=== PATIENT | male | born 1970 | race Caucasian/White ===

== ENCOUNTER 2021-11-26 12:26 | Inpatient (IN) | payer OTHER ==
[2021-11-26] MEDS ORDERED: MENTHOL/PHENOL 1 EACH UD MM PRN (13:01)
[2021-11-26] MEDS ORDERED: NICOTINE 10 MG CARTRIDGE (INHALER) IH PRN (13:01)
[2021-11-26] MEDS ORDERED: MAGNESIUM CITRATE 300 ML BOTTLE PO PRN (13:01)
[2021-11-26] MEDS ORDERED: ONDANSETRON *ODT* 4 MG TABLET SL PRN (13:01)
[2021-11-26] MEDS ORDERED: MAGNESIUM HYDROX 2400MG/30ML ORAL SUSPENSION 30 ML CUP PO PRN (13:01)
[2021-11-26] MEDS ORDERED: BISMUTH SUBSALICYLATE 524 MG/30 ML PO PRN (13:01)
[2021-11-26] MEDS ORDERED: ACETAMINOPHEN 325 MG TABLET (FP) PO PRN ×2 (13:01)
[2021-11-26 13:14] VITALS: BMI 29.8
[2021-11-26] MEDS: PRENATAL VITAMINS W/ FOLIC ACID TABLET (FP) PO SCH (18:49)
[2021-11-26] MEDS: hydrOXYzine PAMOATE 25 MG CAPSULE (FP) PO SCH ×2 (22:33→22:36)
[2021-11-26] MEDS: THIAMINE HCL 100 MG TABLET (FP) PO SCH (22:33)
[2021-11-26] MEDS: MELATONIN 5 MG TABLETS PO SCH (22:33)
[2021-11-26] MEDS: NICOTINE 21 MG/24 HOURS TOPICAL PATCH TD SCH ×2 (22:36→22:42)
[2021-11-27] MEDS: METHOCARBAMOL 500 MG TABLET PO PRN ×2 (05:52→22:52)
[2021-11-27] MEDS: hydrOXYzine PAMOATE 25 MG CAPSULE (FP) PO SCH (05:52)
[2021-11-27] MEDS ORDERED: methaDONE HCL 10 MG TABLET PO SCH (10:00)
[2021-11-27] MEDS ORDERED: chlordiazePOXIDE HCL 25 MG CAPSULE PO PRN (10:01)
[2021-11-27] MEDS ORDERED: methaDONE HCL 40 MG DISPERSABLE TABLET ONE (10:49)
[2021-11-27] MEDS ORDERED: methaDONE HCL 10 MG TABLET ONE (10:49)
[2021-11-27] MEDS: PRENATAL VITAMINS W/ FOLIC ACID TABLET (FP) PO SCH (10:51)
[2021-11-27] MEDS: NICOTINE 21 MG/24 HOURS TOPICAL PATCH TD SCH (10:52)
[2021-11-27] MEDS: chlordiazePOXIDE HCL 25 MG CAPSULE PO SCH ×3 (12:19→22:50)
[2021-11-27] MEDS: IBUPROFEN 400 MG TABLET (FP) PO PRN (18:36)
[2021-11-27] MEDS: THIAMINE HCL 100 MG TABLET (FP) PO SCH (22:49)
[2021-11-27] MEDS: MELATONIN 5 MG TABLETS PO SCH (22:50)
[2021-11-28] MEDS ORDERED: methaDONE HCL 10 MG TABLET ONE (04:17)
[2021-11-28] MEDS ORDERED: methaDONE HCL 40 MG DISPERSABLE TABLET ONE (04:18)
[2021-11-28] MEDS: chlordiazePOXIDE HCL 25 MG CAPSULE PO SCH ×4 (05:25→22:25)
[2021-11-28] MEDS: METHOCARBAMOL 500 MG TABLET PO PRN (05:27)
[2021-11-28] MEDS: IBUPROFEN 400 MG TABLET (FP) PO PRN (06:47)
[2021-11-28] MEDS: LIDOCAINE 5% TOPICAL PATCH TP SCH (10:15)
[2021-11-28] MEDS: NICOTINE 21 MG/24 HOURS TOPICAL PATCH TD SCH (10:16)
[2021-11-28] MEDS: PRENATAL VITAMINS W/ FOLIC ACID TABLET (FP) PO SCH (10:16)
[2021-11-28 11:21] LABS: CALCIUM 8.9 mg/dL (8.5-10.1)
[2021-11-28 11:22] LABS: ALBUMIN 3.3 g/dl (3.4-5.0); BLOOD UREA NITROGEN 18.7 mg/dL (7-18)
[2021-11-28 11:25] LABS: BASO % 0.5 % (0-2.0); CREATININE 0.9 mg/dL (0.55-1.3); EOS % 2.6 % (0-4.5); HEMATOCRIT 39.6 % (35.4-49); MCHC 32.9 g/dl (32.0-35.9); MEAN CELL VOLUME 85.2 fl (80-96); MEAN PLT VOLUME 10.8 fl (7.5-11.1); MONO % 5.7 % (3.8-10.2); NEUT % 82.2 % (42.8-82.8); PLATELET COUNT 225 10^3/uL (134-434); RBC 4.65 M/mm3 (4.00-5.60); RDW 13.5 % (11.9-15.9); WHITE BLOOD COUNT 8.6 K/mm3 (4.0-10.0)
[2021-11-28 11:26] LABS: TOT PROT 6.6 g/dl (6.4-8.2)
[2021-11-28 11:27] LABS: BILIRUBIN,TOTAL 0.4 mg/dL (0.2-1)
[2021-11-28] MEDS: MAG HYDROX/AL HYDROX/SIMETH 30 ML UNIT-DOSE CUP PO PRN (17:52)
[2021-11-28] MEDS: THIAMINE HCL 100 MG TABLET (FP) PO SCH (22:24)
[2021-11-28] MEDS: MELATONIN 5 MG TABLETS PO SCH (22:25)
[2021-11-28] MEDS: LIDOCAINE PATCH REMOVAL MC SCH (22:25)
[2021-11-29] MEDS ORDERED: methaDONE HCL 40 MG DISPERSABLE TABLET ONE (04:24)
[2021-11-29] MEDS ORDERED: methaDONE HCL 10 MG TABLET ONE (04:24)
[2021-11-29] MEDS: chlordiazePOXIDE HCL 25 MG CAPSULE PO SCH ×2 (05:54→11:39)
[2021-11-29] MEDS: LIDOCAINE 5% TOPICAL PATCH TP SCH (10:20)
[2021-11-29] MEDS: PRENATAL VITAMINS W/ FOLIC ACID TABLET (FP) PO SCH (10:20)
[2021-11-29] MEDS: NICOTINE 21 MG/24 HOURS TOPICAL PATCH TD SCH (10:21)
[2021-11-29] MEDS: HYDROCORTISONE 1% TOPICAL CREAM 30 GM TUBE TP SCH (15:15)
[2021-11-29] MEDS: chlordiazePOXIDE 5 MG CAPSULE PO SCH ×2 (17:48→22:04)
[2021-11-29] MEDS: LIDOCAINE PATCH REMOVAL MC SCH (22:03)
[2021-11-29] MEDS: MELATONIN 5 MG TABLETS PO SCH (22:03)
[2021-11-29] MEDS: THIAMINE HCL 100 MG TABLET (FP) PO SCH (22:03)
[2021-11-30] MEDS ORDERED: chlordiazePOXIDE HCL 10 MG CAPSULE PO PRN
[2021-11-30] MEDS ORDERED: methaDONE HCL 10 MG TABLET ONE (04:34)
[2021-11-30] MEDS ORDERED: methaDONE HCL 40 MG DISPERSABLE TABLET ONE (04:35)
[2021-11-30] MEDS ORDERED: chlordiazePOXIDE HCL 10 MG CAPSULE PO SCH (05:00)
[2021-11-30] MEDS: chlordiazePOXIDE 5 MG CAPSULE PO SCH ×3 (05:34→22:22)
[2021-11-30] MEDS: LIDOCAINE 5% TOPICAL PATCH TP SCH (10:50)
[2021-11-30] MEDS: METHOCARBAMOL 500 MG TABLET PO PRN ×2 (10:51→17:49)
[2021-11-30] MEDS: PRENATAL VITAMINS W/ FOLIC ACID TABLET (FP) PO SCH (10:51)
[2021-11-30] MEDS: HYDROCORTISONE 1% TOPICAL CREAM 30 GM TUBE TP SCH (10:52)
[2021-11-30] MEDS: NICOTINE 21 MG/24 HOURS TOPICAL PATCH TD SCH (10:52)
[2021-11-30] MEDS: IBUPROFEN 400 MG TABLET (FP) PO PRN (11:56)
[2021-11-30] MEDS: THIAMINE HCL 100 MG TABLET (FP) PO SCH (22:21)
[2021-11-30] MEDS: MELATONIN 5 MG TABLETS PO SCH (22:21)
[2021-11-30] MEDS: LIDOCAINE PATCH REMOVAL MC SCH (22:24)
[2021-12-01] MEDS ORDERED: methaDONE HCL 40 MG DISPERSABLE TABLET ONE (04:38)
[2021-12-01] MEDS ORDERED: methaDONE HCL 10 MG TABLET ONE (04:38)
[2021-12-01] MEDS ORDERED: chlordiazePOXIDE HCL 10 MG CAPSULE PO SCH (05:00)
[2021-12-01] MEDS: chlordiazePOXIDE 5 MG CAPSULE PO SCH ×2 (05:50→17:25)
[2021-12-01] MEDS: MAG HYDROX/AL HYDROX/SIMETH 30 ML UNIT-DOSE CUP PO PRN ×2 (07:39→18:18)
[2021-12-01] MEDS: NICOTINE 21 MG/24 HOURS TOPICAL PATCH TD SCH ×2 (10:04→10:21)
[2021-12-01] MEDS: LIDOCAINE 5% TOPICAL PATCH TP SCH (10:04)
[2021-12-01] MEDS: HYDROCORTISONE 1% TOPICAL CREAM 30 GM TUBE TP SCH (10:05)
[2021-12-01] MEDS: PRENATAL VITAMINS W/ FOLIC ACID TABLET (FP) PO SCH (10:06)
[2021-12-01] MEDS: MELATONIN 5 MG TABLETS PO SCH (22:09)
[2021-12-01] MEDS: THIAMINE HCL 100 MG TABLET (FP) PO SCH (22:09)
[2021-12-01] MEDS: LIDOCAINE PATCH REMOVAL MC SCH (22:10)
[2021-12-02] MEDS ORDERED: methaDONE HCL 40 MG DISPERSABLE TABLET ONE (04:59)
[2021-12-02] MEDS ORDERED: methaDONE HCL 10 MG TABLET ONE (04:59)
[2021-12-02] MEDS ORDERED: chlordiazePOXIDE 5 MG CAPSULE PO ONE (05:00)
[2021-12-02] MEDS ORDERED: chlordiazePOXIDE HCL 10 MG CAPSULE PO ONE (05:00)
[2021-12-02 09:19] VITALS: BP 113/56; PULSE 89; TEMP 97.4
[2021-12-02] MEDS: METHOCARBAMOL 500 MG TABLET PO PRN (10:51)
[2021-12-02] MEDS: NICOTINE 21 MG/24 HOURS TOPICAL PATCH TD SCH (10:52)
[2021-12-02] MEDS: PRENATAL VITAMINS W/ FOLIC ACID TABLET (FP) PO SCH (10:52)
[2021-12-02] MEDS: LIDOCAINE 5% TOPICAL PATCH TP SCH (10:52)
[2021-12-02] MEDS: HYDROCORTISONE 1% TOPICAL CREAM 30 GM TUBE TP SCH (10:53)
== END 2021-12-02 12:24 | disposition home or self-care (01) | DRG 773 ==
LOC: YASAS 12:26 → Y6N 16:50
PROVIDERS: ADMIT Allergy & Immunology; ATTEND Allergy & Immunology
PROC: HZ2ZZZZ Detoxification Services for Substance Abuse Treatment (ICD-10-PCS; principal; 2021-11-26)
DX: F10.230 Alcohol dependence with withdrawal, uncomplicated (principal); F11.20 Opioid dependence, uncomplicated; F14.20 Cocaine dependence, uncomplicated; F17.210 Nicotine dependence, cigarettes, uncomplicated; F19.282 Other psychoactive substance dependence with psychoactive substance-induced sleep disorder; F19.280 Other psychoactive substance dependence with psychoactive substance-induced anxiety disorder; F19.24 Other psychoactive substance dependence with psychoactive substance-induced mood disorder; F31.9 Bipolar disorder, unspecified; M54.50 Low back pain, unspecified; G89.29 Other chronic pain; Z86.11 Personal history of tuberculosis; Z56.0 Unemployment, unspecified; Z59.00 Homelessness unspecified
CPT/HCPCS: 36415; 80053; 85025; 86780; 93005; 93010; C9803; U0003; U0005